=== PATIENT | female | born 1930 | race Caucasian/White ===

== ENCOUNTER 2018-04-15 17:49 | Inpatient (IN) ==
[2018-04-15] MEDS ORDERED: D5W 1000 ML IV 1,000 ML IV SCH (18:00)
[2018-04-15 19:00] LABS: BASOPHILS # (AUTO) 0.2 X10^3/uL (0.0-0.1); BASOPHILS % (AUTO) 1.2 % (0.2-1.0); EOSINOPHILS % (AUTO) 0.2 % (0.9-2.9); HEMATOCRIT 33.4 % (36.0-47.0); HEMOGLOBIN 10.9 g/dL (12.0-16.0); LYMPHOCYTES # (AUTO) 1.9 X10^3/uL (1.3-2.9); LYMPHOCYTES % (AUTO) 13.7 % (21.0-51.0); MEAN CORPUSCULAR HGB CONC 32.6 g/dL (33.0-35.0); MEAN CORPUSCULAR VOLUME 85.7 fL (80.0-100.0); MONOCYTES # (AUTO) 0.5 x10^3/uL (0.3-0.8); MONOCYTES % (AUTO) 3.2 % (0.0-13.0); NEUTROPHILS # (AUTO) 11.6 x10^3/uL (2.2-4.8); NEUTROPHILS % (AUTO) 81.7 % (42.0-75.0); PLATELET COUNT 259 X10^3/uL (150.0-450.0); RED CELL DISTRIBUTION WIDTH 17.9 % (11.6-16.5); WHITE BLOOD COUNT 14.2 X10^3/uL (3.6-10.0)
[2018-04-15 19:07] LABS: PLATELET MORPHOLOGY COMMENT NORMAL (NORMAL)
[2018-04-15 19:08] LABS: ALANINE AMINOTRANSFERASE 11 Units/L (12-78); ALBUMIN 2.9 g/dL (3.4-5.0); ALKALINE PHOSPHATASE 56 Units/L (46-116); ASPARTATE AMINO TRANSFERASE 12 Units/L (15-37); BLOOD UREA NITROGEN 20 mg/dL (7-18); CALCIUM 8.4 mg/dL (8.5-10.1); CARBON DIOXIDE 22.7 mmol/L (21-32); CHLORIDE 108 mmol/L (98-107); COR CA(FOR HYPOALB) 9.3 mg/dL (8.5-10.1); COR NA(FOR HYPERGLY) 144 mmol/L (136-145); CREATININE 0.84 mg/dL (0.55-1.02); SODIUM 142 mmol/L (136-145); TOTAL PROTEIN 7.6 g/dL (6.4-8.2); eGFR NON BLACK RACES > 60 (>60)
[2018-04-15] MEDS ORDERED: M.S. CONTIN 15 MG (EXTENDED RELEASE) PO PRN ×2 (20:13→21:11)
[2018-04-15] MEDS ORDERED: PERCOCET TAB 5/325 MG PO PRN ×2 (20:15→21:11)
[2018-04-15] MEDS ORDERED: XANAX PO PRN ×2 (20:15→21:11)
[2018-04-15 22:47] LABS: BILIRUBIN,URINE NEGATIVE (NEGATIVE); BLOOD/HEMOGLOBIN,URINE NEGATIVE (NEGATIVE); GLUCOSE, URINE 1+ (NEGATIVE); KETONES,URINE NEGATIVE (NEGATIVE); LEUKOCYTE ESTERASE ,URINE 1+ (NEGATIVE); NITRITES,URINE POSITIVE (NEGATIVE); PROTEIN,URINE 1+ (NEGATIVE); UROBILINOGEN,URINE NORMAL (NORMAL)
[2018-04-15 22:54] LABS: APPEARANCE,URINE CLOUDY (CLEAR); BACTERIA,URINE 4+ /HPF (NEGATIVE); COLOR,URINE YELLOW (YELLOW); RBC,URINE 0-2 /HPF (NONE SEEN); SQUAMOUS EPITHELIAL CELL,UR RARE /HPF (NEGATIVE)
--- NOTE | 2018-04-15 23:09 | RAD ---
AP chest Indication: Elevated white blood cell count with shortness of breath Comparison: None available Findings: Increased reticular opacities within the right lung base represents subsegmental atelectasi s versus developing right lower lobe infiltrate. Suspected small right-sided pleural effusion as well . Chronic interstitial lung changes and hyperexpansion lungs consistent with COPD. Heart size within normal limits. Moderate tortuosity and likely ectasia of the descending thoracic aorta. There is a resendez spected moderate-size hiatal hernia also noted. No acute osseous abnormality. Impression: 1.Increased reticular opacities within the right lung base represents subsegmental atelectasis versus developing infiltrate/pneumonia. 2. Suspected small right-sided pleural effusion. 3. Moderate COPD and chronic interstitial lung changes. 4. Suspected moderate size hiatal hernia. Reported By:
[2018-04-16] MEDS: D5W 1000 ML IV 1,000 ML IV SCH ×3 (03:05→17:47)
[2018-04-16 06:37] LABS: BASOPHILS # (AUTO) 0.1 X10^3/uL (0.0-0.1); BASOPHILS % (AUTO) 1.2 % (0.2-1.0); EOSINOPHILS # (AUTO) 0.1 x10^3/uL (0.0-0.2); EOSINOPHILS % (AUTO) 0.8 % (0.9-2.9); HEMATOCRIT 31.2 % (36.0-47.0); HEMOGLOBIN 10.4 g/dL (12.0-16.0); LYMPHOCYTES # (AUTO) 2.7 X10^3/uL (1.3-2.9); MEAN CORPUSCULAR HEMOGLOBIN 28.2 pg (27.0-34.0); MEAN CORPUSCULAR HGB CONC 33.4 g/dL (33.0-35.0); MEAN CORPUSCULAR VOLUME 84.3 fL (80.0-100.0); MEAN PLATELET VOLUME 9.1 fL (7.4-11.0); MONOCYTES # (AUTO) 0.5 x10^3/uL (0.3-0.8); MONOCYTES % (AUTO) 5.1 % (0.0-13.0); NEUTROPHILS # (AUTO) 7.1 x10^3/uL (2.2-4.8); NEUTROPHILS % (AUTO) 66.9 % (42.0-75.0); PLATELET COUNT 262 X10^3/uL (150.0-450.0); RED CELL DISTRIBUTION WIDTH 17.9 % (11.6-16.5); WHITE BLOOD COUNT 10.6 X10^3/uL (3.6-10.0)
[2018-04-16 06:51] LABS: ALANINE AMINOTRANSFERASE 20 Units/L (12-78); ALBUMIN 2.7 g/dL (3.4-5.0); ALKALINE PHOSPHATASE 50 Units/L (46-116); ASPARTATE AMINO TRANSFERASE 14 Units/L (15-37); BLOOD UREA NITROGEN 16 mg/dL (7-18); CALCIUM 8.2 mg/dL (8.5-10.1); CARBON DIOXIDE 24.9 mmol/L (21-32); CHLORIDE 103 mmol/L (98-107); COR CA(FOR HYPOALB) 9.2 mg/dL (8.5-10.1); CREATININE 0.63 mg/dL (0.55-1.02); SODIUM 138 mmol/L (136-145); eGFR NON BLACK RACES > 60 (>60)
[2018-04-16] MEDS: DUONEB 0.5 MG/3 MG NEB SCH ×4 (08:36→20:20)
[2018-04-16] MEDS: LEVAQUIN PREMIX IV 500 MG 500 MG/100 ML BAG IV SCH (08:44)
[2018-04-16] MEDS: FORTAZ or TAZICEF VIAL INJ 1 G in NS 100 ML IV + SPIKE MINIBAG* 100 ML IV SCH ×3 (08:44→21:04)
[2018-04-16] MEDS ORDERED: ROCEPHIN VIAL 1 GRAM 1 G in NS 100 ML IV + SPIKE MINIBAG* 100 ML IV SCH (09:00)
[2018-04-16] MEDS ORDERED: SALINE 3% 15 ML NEB TX ONE (09:23)
[2018-04-16] MEDS ORDERED: MULTIVITAMIN CA IRON MINERALS PO SCH (09:30)
[2018-04-16] MEDS ORDERED: [UNRECOGNIZED DRUG - OTHER] PO SCH (09:30)
--- NOTE | 2018-04-16 09:49 | DR.H&P ---
H&P - History & Physical for Day of: H&P Date: 04/15/18 - Chief Complaint Chief Complaint: GENERALIZED WEAKNESS, HYPERNATREMIA - History of Present Illness History of Present Illness: IS A 87 YEAR OLD PATIENT OF OURS WHO IS A RESIDENT OF [facility]. SHE PRESENTED TO THE HOSPITAL A DIRECT ADMISSION FOR HYPERNATREMIA AND GENERALIZED WEAKNESS. OUTPATIENT LABS THAT WERE OBTAINED ON 04/14/18 REVEALED SODIUM OF 152 AND CHLORIDE 116. WE ADMITTED PATIENT FOR FURTHER AND EVALUATION AND TREATMENT AND PLANNED TO START HER ON D5W AT 100ML/HR. ON ADMISSION, PATIENT WAS NOTED TO BE SHORT OF BREATH AND WITH A NON- PRODUCTIVE COUGH. WE OBTAINED FURTHER LABS AND A CHEST XRAY. ABNORMAL LAB VALUES INCLUDE THE FOLLOWING: WBC 14.2, HGB 10.9, HCT 33.4, CHLORIDE 108, BUN 20 , GLUCOSE 182, CALCIUM 8.4, AST 12, ALT 11, ALBUMIN 2.9. URINALYSIS REVEALED: WBC 10-20, RBC 0-2, LEUKOCYTES 1+, BACTERIA 4+. CHEST XRAY REVEALED INCREASED RETICULAR OPACITIES WITHIN THE RIGHT LUNG BASE RESPRESENTING SUBSEGMENTAL ATELECTASIS VERSUS DEVELOPING INFILTRATE/PNEUMONIA. SUSPECTED SMALL RIGHT SIDED PLEURAL EFFUSION. MODERATE COPD AND CHRONIC INTERSTITIAL LUNG CHANGES. SUSPECTED MODERATE SIZE HIATAL HERNIA. HER VITALS ON ADMISSION WERE 98.2-107-20- 98%-174/78. WE STARTED PATIENT ON THE PNEUMONIA PROTOCOL WITH FORTAZ AND LEVAQUIN IV WELL RESPIRATORY TREATMENTS. WE RESUMED HOME MEDICATIONS. OTHERWISE, WE PLANNED TO FOLLOW UP WITH AM LABS AND CHEST XRAY AND CONTINUE TO MONITOR PATIENT. - Past Medical History Past Medical History: Alzheimers, Arthritis, Coronary Artery Disease, CVA, Dementia, Depression, Dyslipidemia, GERD, Hypertension, Hypothyroidism, Renal Disease Additional Medical History: PARKINSONS, CONSTIPATION, CHRONIC BACK PAIN, SCHIZOPHRENIA - Past Surgical History Surgical History: Hysterectomy, Ortho Surgery Additional Surgical History: HIP REPLACEMENT - Family History Family Medical History: Cancer, Coronary Artery Disease - Social History Does patient currently use any type of tobacco product: No Have you used tobacco products in the last 12 months: No Type of Tobacco Use: None Does any household member use tobacco: No Alcohol Use: None Drug Use: None - Medications Home Medications: alprazolam 1 tab PO HS 04/15/18 [History Confirmed 04/15/18] amino acids-protein hydrolys [Pro-Stat Profile] 1 packet PO BID 04/15/18 [ History Confirmed 04/15/18] ascorbic acid (vitamin C) [Vitamin C] 1 tab PO BID 04/15/18 [History Confirmed 04/15/18] docusate sodium 10 ml PO BID 04/15/18 [History Confirmed 04/15/18] food supplemt, lactose-reduced [Ensure Enlive] 8 oz PO Q6HR 04/15/18 [History Confirmed 04/15/18] levothyroxine 1 tab PO DAILY 04/15/18 [History Confirmed 04/15/18] megestrol 40 mg PO BID 04/15/18 [History Confirmed 04/15/18] morphine 1 tab PO BID 04/15/18 [History Confirmed 04/15/18] fjvarphzxrpb-Fl-znbh-minerals [Multiple Vitamin, Womens] 1 tab PO DAILY [History Confirmed 04/15/18] olanzapine 1 tab PO DAILY 04/15/18 [History Confirmed 04/15/18] oxycodone-acetaminophen 1 tab PO Q6HR PRN 04/15/18 [History Confirmed 04/15/18] polyethylene glycol 3350 1 dose PO HS 04/15/18 [History Confirmed 04/15/18] polyvinyl alcohol [Artificial Tears (polyvin alc)] 1 drp OPHTHALMIC (EYE) TID [History Confirmed 04/15/18] potassium chloride 7.5 ml PO DAILY 04/15/18 [History Confirmed 04/15/18] - Review of Systems Constitutional: Weakness Eyes: No Symptoms Reported ENT: No Symptoms Reported Respiratory: Cough, Shortness of Breath. denies: Hemoptysis, Pleuritic Pain, Sputum, Wheezing Cardiovascular: No Symptoms Reported Gastrointestinal: No Symptoms Reported Genitourinary: Incontinence Musculoskeletal: No Symptoms Reported Skin: No Symptoms Reported Neurological: Weakness - Physical Exam Vital Signs: Temperature 97.0 F Pulse Rate [Left Brachial] 66 Pulse Rate 77 Respiratory Rate 16 Blood Pressure [Right Thigh] 125/47 Blood Pressure [Left Arm] 155/67 O2 Sat by Pulse Oximetry 97 Oriented: Not Oriented Eyes: Normal Ear: Normal Nose: Normal Throat: Normal Respiratory: Diminished Throughout Cardiovascular: Normal. negative: S3, S4, Murmur : Normal Auscultation: Bowel Sounds: Normal Palpation: Normal Tenderness: Suprapubic, Mild. negative: Rebound, Guarding, Rigidity Skin: Normal Musculoskeletal: Normal Psychiatric: Normal Mood Description: Calm Affect: Normal - Assessment/Plan (1) Hypernatremia Status: Acute Plan: ADMIT, D5W @ 100ML/HR, CONTINUE TO MOITOR (2) Pneumonia Qualifiers: Pneumonia type: due to unspecified organism Laterality: right Lung location: lower lobe of lung Qualified Code(s): J18.1 - Lobar pneumonia, unspecified organism Status: Acute Plan: PNEUMONIA PROTOCOL, FORTAZ, LEVAQUIN, SUPPLEMENTAL OXYGEN, RESPIRATORY TREATMENTS, CONTINUE TO MONITOR (3) Urinary tract infection Qualifiers: Urinary tract infection type: acute cystitis Hematuria presence: without hematuria Qualified Code(s): N30.00 - Acute cystitis without hematuria Status: Acute Plan: FORTAZ IV, LEVAQUIN IV, CONTINUE TO MONITOR - Allergies Allergies/Adverse Reactions: Allergies Allergy/AdvReac Type Severity Reaction Status Date / Time fentanyl Allergy Verified 04/15/18 20:08
[2018-04-16] MEDS ORDERED: DIFLUCAN 100 MG IV (MIX by PHARMACY)* 100 MG/50 ML BAG IV SCH (10:00)
[2018-04-16] MEDS: VITAMIN C PO SCH ×2 (10:04→20:32)
[2018-04-16] MEDS: POTASSIUM CHLORIDE LIQ 20 MEQ UDC PO SCH (10:04)
[2018-04-16] MEDS: MIRALAX POWDER (1 DOSE 17 G) PO SCH (10:04)
[2018-04-16] MEDS: COLACE SYRUP 100 MG UDC PO SCH ×2 (10:04→20:31)
[2018-04-16] MEDS: MEGACE PO SCH ×2 (10:05→20:32)
[2018-04-16] MEDS: SYNTHROID 88 mcg TAB PO SCH (10:05)
[2018-04-16] MEDS: ARTIFICIAL TEARS DROPS OP SCH ×3 (10:06→21:03)
[2018-04-16] MEDS: ROBITUSSIN DM PO SCH ×5 (10:07→20:40)
[2018-04-16] MEDS: DIFLUCAN 200 MG IV PREMIX* 200 MG/100 ML BAG IV SCH (11:22)
[2018-04-16] MEDS ORDERED: [UNRECOGNIZED DRUG - OTHER] PO SCH (15:00)
[2018-04-16] MEDS ORDERED: MIRALAX POWDER (255 GRAMS BTL) PO SCH (21:00)
--- NOTE | 2018-04-16 21:41 | PCM.PROG ---
Progress Note - Progress Note for Day of Date: 04/16/18 - Subjective Subjective: WAS ADMITTED FROM THE COR[place] FOR HYPERNATREMIA, PNEUMONIA, AND A URINARY TRACT INFECTION. TODAY, SHE IS LYING IN BED WITH EYES CLOSE ON MORNING ROUNDS. SHE CONTINUES WITH A NON-PRODUCTIVE COUGH. ON EXAMINATION, HEART IS REGULAR IN RATE AND RHYTHM. BILATERAL LUNGS ARE NOTED WITH DIMINISHED LUNG SOUNDS THROUGHOUT. ABDOMEN IS ROUND, SOFT, AND TENDER TO SUPRAPUBIC AREA ON PALPATION. NORMAL BOWEL SOUNDS ARE NOTED IN ALL QUADRANTS. HER VITALS THIS MORNING ARE 96.9-76-20-98%-155/67. LABS WERE OBTAINED. ABNORMAL LAB VALUES INCLUDE THE FOLLOWING: WBC 10.6, HGB 10.4, HCT 31.2, CALCIUM 8.2, AST 14, ALBUMIN 2.7. TODAY, WE WILL CONTINUE WITH IV FLUIDS, RESPIRATORY TREATMENTS, AND CURRENT PLAN OF CARE. OTHERWISE, WE WILL FOLLOW UP WITH AM LABS AND CONTINUE TO MONITOR PATIENT. - Past Medical Family Social History Past Med/Fam/Surg Hx: No changes since H&P Allergies: Allergies fentanyl Allergy (Verified 04/15/18 20:08) - Review of Systems ROS: No change since H&P - Vital Signs and I&O's Vital Signs: Temperature 97.9 F Pulse Rate [Left Brachial] 95 Pulse Rate 97 Respiratory Rate 22 Blood Pressure [Right Arm] 126/67 Blood Pressure [Right Thigh] 125/47 Blood Pressure [Left Arm] 109/53 O2 Sat by Pulse Oximetry 96 Intake and Output: Intake & Output 04/14/18 04/15/18 04/16/18 04/17/18 11:59 11:59 11:59 11:59 Intake Total 1265 / 1265 120 / 120 Balance 1265 / 1265 120 / 120 - Physical Exam Oriented: Not Oriented Eyes: Normal Ear: Normal Nose: Normal Throat: Normal Respiratory: Right, Left, Generalized, Diminished Cardiovascular: Normal. negative: S3, S4, Murmur : Normal Auscultation: Bowel Sounds: Normal Palpation: Normal Tenderness: Suprapubic, Mild. negative: Rebound, Guarding, Rigidity Skin: Normal Musculoskeletal: Normal Psychiatric: Normal Mood Description: Calm Affect: Normal Speech Pattern: Clear, Appropriate - Laboratory and Diagnostics Result Diagrams: 04/16/18 05:49 04/16/18 05:49 Labs: Laboratory WBC 10.6 X10^3/uL (3.6-10.0) H 04/16/18 05:49 RBC 3.70 X10^6/uL (3.5-5.4) 04/16/18 05:49 Hgb 10.4 g/dL (12.0-16.0) L 04/16/18 05:49 Hct 31.2 % (36.0-47.0) L 04/16/18 05:49 MCV 84.3 fL (80.0-100.0) 04/16/18 05:49 MCH 28.2 pg (27.0-34.0) 04/16/18 05:49 MCHC 33.4 g/dL (33.0-35.0) 04/16/18 05:49 RDW 17.9 % (11.6-16.5) H 04/16/18 05:49 Plt Count 262 X10^3/uL (150.0-450.0) 04/16/18 05:49 Plt Count Comment Adequate (ADEQUATE) 04/15/18 18:38 MPV 9.1 fL (7.4-11.0) 04/16/18 05:49 Neut % (Auto) 66.9 % (42.0-75.0) 04/16/18 05:49 Lymph % (Auto) 26.0 % (21.0-51.0) 04/16/18 05:49 [place] % (Auto) 5.1 % (0.0-13.0) 04/16/18 05:49 Eos % (Auto) 0.8 % (0.9-2.9) L 04/16/18 05:49 Baso % (Auto) 1.2 % (0.2-1.0) H 04/16/18 05:49 Neut # (Auto) 7.1 x10^3/uL (2.2-4.8) H 04/16/18 05:49 Lymph # (Auto) 2.7 X10^3/uL (1.3-2.9) 04/16/18 05:49 [place] # (Auto) 0.5 x10^3/uL (0.3-0.8) 04/16/18 05:49 Eos # (Auto) 0.1 x10^3/uL (0.0-0.2) 04/16/18 05:49 Baso # (Auto) 0.1 X10^3/uL (0.0-0.1) 04/16/18 05:49 Absolute Nucleated RBC 0.1 /100WBC 04/16/18 05:49 Plt Clumps, EDTA Few 04/15/18 18:38 Plt Morphology Comment Normal (NORMAL) 04/15/18 18:38 RBC Morphology Normal (NORMAL) 04/15/18 18:38 Sodium 138 mmol/L (136-145) 04/16/18 05:49 Corrected Sodium TNP 04/16/18 05:49 Potassium 3.7 mmol/L (3.5-5.1) 04/16/18 05:49 Chloride 103 mmol/L (98-107) 04/16/18 05:49 Carbon Dioxide 24.9 mmol/L (21-32) 04/16/18 05:49 BUN 16 mg/dL (7-18) 04/16/18 05:49 Creatinine 0.63 mg/dL (0.55-1.02) 04/16/18 05:49 Est GFR (MDRD) Af Amer > 60 (>60) 04/16/18 05:49 Est GFR (MDRD) Non-Af > 60 (>60) 04/16/18 05:49 Glucose 95 mg/dL (65-99) 04/16/18 05:49 Calcium 8.2 mg/dL (8.5-10.1) L 04/16/18 05:49 Corrected Calcium 9.2 mg/dL (8.5-10.1) 04/16/18 05:49 Total Bilirubin 0.50 mg/dL (0.2-1.0) 04/16/18 05:49 AST 14 Units/L (15-37) L 04/16/18 05:49 ALT 20 Units/L (12-78) 04/16/18 05:49 Alkaline Phosphatase 50 Units/L (46-116) 04/16/18 05:49 Total Protein 7.0 g/dL (6.4-8.2) 04/16/18 05:49 Albumin 2.7 g/dL (3.4-5.0) L 04/16/18 05:49 Globulin 4.3 g/dL (2.5-4.5) 04/16/18 05:49 Albumin/Globulin Ratio 0.6 Ratio (1.1-2.1) L 04/16/18 05:49 Specimen Type Catherized urine 04/15/18 22:30 Urine Color Yellow (YELLOW) 04/15/18 22:30 Urine Appearance Cloudy (CLEAR) 04/15/18 22:30 Urine pH 7.0 (5.0 - 8.0) 04/15/18 22:30 Ur Specific [place] 1.010 (1.000-1.030) 04/15/18 22:30 Urine Protein 1+ (NEGATIVE) 04/15/18 22:30 Urine Glucose (UA) 1+ (NEGATIVE) 04/15/18 22:30 Urine Ketones Negative (NEGATIVE) 04/15/18 22:30 Urine Occult Blood Negative (NEGATIVE) 04/15/18 22:30 Urine Nitrite Positive (NEGATIVE) 04/15/18 22:30 Urine Bilirubin Negative (NEGATIVE) 04/15/18 22:30 Urine Urobilinogen Normal (NORMAL) 04/15/18 22:30 Ur Leukocyte Esterase 1+ (NEGATIVE) 04/15/18 22:30 Urine RBC 0-2 /HPF (NONE SEEN) 04/15/18 22:30 Urine WBC 10-20 /HPF (NONE SEEN) 04/15/18 22:30 Ur Squamous Epith Cells Rare /HPF (NEGATIVE) 04/15/18 22:30 Urine Bacteria 4+ /HPF (NEGATIVE) 04/15/18 22:30 Ur Culture Indicated? Yes/culture set up 04/15/18 22:30 - Plan (1) Hypernatremia Status: Acute Plan: ADMIT, D5W @ 100ML/HR, CONTINUE TO MOITOR (2) Pneumonia Status: Acute Qualifiers: Pneumonia type: due to unspecified organism Laterality: right Lung location: lower lobe of lung Qualified Code(s): J18.1 - Lobar pneumonia, unspecified organism Plan: PNEUMONIA PROTOCOL, FORTAZ, LEVAQUIN, SUPPLEMENTAL OXYGEN, RESPIRATORY TREATMENTS, CONTINUE TO MONITOR (3) Urinary tract infection Status: Acute Qualifiers: Urinary tract infection type: acute cystitis Hematuria presence: without hematuria Qualified Code(s): N30.00 - Acute cystitis without hematuria Plan: FORTAZ IV, LEVAQUIN IV, CONTINUE TO MONITOR (4) Dementia Status: Acute Qualifiers: Dementia type: Alzheimer's disease Alzheimer's disease onset: other onset Dementia behavioral disturbance: without behavioral disturbance Qualified Code(s): G30.8 - Other Alzheimer's disease; F02.80 - Dementia in other diseases classified elsewhere without behavioral disturbance Plan: CONTINUE HOME MEDS
[2018-04-17] MEDS: D5W 1000 ML IV 1,000 ML IV SCH ×2 (04:21→13:36)
[2018-04-17] MEDS: FORTAZ or TAZICEF VIAL INJ 1 G in NS 100 ML IV + SPIKE MINIBAG* 100 ML IV SCH ×3 (05:29→21:33)
[2018-04-17] MEDS: ARTIFICIAL TEARS DROPS OP SCH ×3 (05:29→22:00)
--- NOTE | 2018-04-17 06:17 | RAD ---
HISTORY: Shortness of breath, elevated white blood cell count. Study: Single-view chest Comparison: 04/15/2018. Findings: Trachea is midline. Heart size normal. There is aortic uncoiling. There is hyperinflation of the lung s with improved aeration in the right lung base. Chronic interstitial changes likely indicate COPD. A very small right-sided pleural effusion is again suspected. No pneumothorax is seen. Osseous structu res are intact. IMPRESSION: COPD with improved aeration in the right lung base. Small right pleural effusion is suspected. Reported By:
[2018-04-17 06:23] LABS: ALANINE AMINOTRANSFERASE 7 Units/L (12-78); ALBUMIN 2.2 g/dL (3.4-5.0); ALKALINE PHOSPHATASE 44 Units/L (46-116); ASPARTATE AMINO TRANSFERASE 12 Units/L (15-37); BLOOD UREA NITROGEN 16 mg/dL (7-18); CALCIUM 8.9 mg/dL (8.5-10.1); CARBON DIOXIDE 26.1 mmol/L (21-32); CHLORIDE 104 mmol/L (98-107); COR CA(FOR HYPOALB) 10.3 mg/dL (8.5-10.1); CREATININE 0.78 mg/dL (0.55-1.02); SODIUM 138 mmol/L (136-145); eGFR NON BLACK RACES > 60 (>60)
[2018-04-17 06:29] LABS: BASOPHILS % (AUTO) 0.5 % (0.2-1.0); EOSINOPHILS % (AUTO) 0.2 % (0.9-2.9); HEMATOCRIT 26.6 % (36.0-47.0); HEMOGLOBIN 8.9 g/dL (12.0-16.0); LYMPHOCYTES % (AUTO) 19.8 % (21.0-51.0); MEAN CORPUSCULAR HEMOGLOBIN 28.3 pg (27.0-34.0); MEAN CORPUSCULAR HGB CONC 33.6 g/dL (33.0-35.0); MEAN CORPUSCULAR VOLUME 84.3 fL (80.0-100.0); MEAN PLATELET VOLUME 9.2 fL (7.4-11.0); MONOCYTES # (AUTO) 0.5 x10^3/uL (0.3-0.8); MONOCYTES % (AUTO) 5.2 % (0.0-13.0); NEUTROPHILS # (AUTO) 7.4 x10^3/uL (2.2-4.8); NEUTROPHILS % (AUTO) 74.3 % (42.0-75.0); PLATELET COUNT 215 X10^3/uL (150.0-450.0); RED BLOOD COUNT 3.15 X10^6/uL (3.5-5.4); RED CELL DISTRIBUTION WIDTH 18.2 % (11.6-16.5)
[2018-04-17 07:59] VITALS: BMI 13.1
[2018-04-17] MEDS: LEVAQUIN PREMIX IV 500 MG 500 MG/100 ML BAG IV SCH (08:37)
[2018-04-17] MEDS: DIFLUCAN 200 MG IV PREMIX* 200 MG/100 ML BAG IV SCH (08:38)
[2018-04-17] MEDS: COLACE SYRUP 100 MG UDC PO SCH ×2 (08:39→21:31)
[2018-04-17] MEDS: MIRALAX POWDER (1 DOSE 17 G) PO SCH (08:39)
[2018-04-17] MEDS: MEGACE PO SCH (08:39)
[2018-04-17] MEDS: TAB-A-VITE PO SCH (08:39)
[2018-04-17] MEDS: ROBITUSSIN DM PO SCH ×3 (08:39→21:30)
[2018-04-17] MEDS: POTASSIUM CHLORIDE LIQ 20 MEQ UDC PO SCH (08:39)
[2018-04-17] MEDS: VITAMIN C PO SCH ×2 (08:39→21:29)
[2018-04-17] MEDS: SYNTHROID 88 mcg TAB PO SCH (08:39)
[2018-04-17] MEDS: DUONEB 0.5 MG/3 MG NEB SCH ×4 (08:49→21:49)
[2018-04-17] MEDS ORDERED: DULCOLAX SUPPOSITORY 10 MG RECTAL ONE (20:31)
[2018-04-18] MEDS: MEGACE PO SCH ×2 (00:36→09:54)
[2018-04-18] MEDS: D5W 1000 ML IV 1,000 ML IV SCH (03:07)
[2018-04-18 05:16] LABS: BASOPHILS % (AUTO) 0.4 % (0.2-1.0); EOSINOPHILS % (AUTO) 0.7 % (0.9-2.9); HEMATOCRIT 29.2 % (36.0-47.0); HEMOGLOBIN 9.7 g/dL (12.0-16.0); LYMPHOCYTES % (AUTO) 27.5 % (21.0-51.0); MEAN CORPUSCULAR HEMOGLOBIN 28.4 pg (27.0-34.0); MEAN CORPUSCULAR HGB CONC 33.4 g/dL (33.0-35.0); MEAN PLATELET VOLUME 8.9 fL (7.4-11.0); MONOCYTES # (AUTO) 0.5 x10^3/uL (0.3-0.8); MONOCYTES % (AUTO) 7.4 % (0.0-13.0); NEUTROPHILS # (AUTO) 4.5 x10^3/uL (2.2-4.8); PLATELET COUNT 246 X10^3/uL (150.0-450.0); RED BLOOD COUNT 3.44 X10^6/uL (3.5-5.4); RED CELL DISTRIBUTION WIDTH 17.9 % (11.6-16.5); WHITE BLOOD COUNT 7.1 X10^3/uL (3.6-10.0)
[2018-04-18 05:28] LABS: ALANINE AMINOTRANSFERASE 9 Units/L (12-78); ALBUMIN 2.3 g/dL (3.4-5.0); ALKALINE PHOSPHATASE 45 Units/L (46-116); ASPARTATE AMINO TRANSFERASE 17 Units/L (15-37); BLOOD UREA NITROGEN 12 mg/dL (7-18); CALCIUM 9.3 mg/dL (8.5-10.1); CARBON DIOXIDE 25.9 mmol/L (21-32); CHLORIDE 106 mmol/L (98-107); COR CA(FOR HYPOALB) 10.7 mg/dL (8.5-10.1); CREATININE 0.64 mg/dL (0.55-1.02); SODIUM 139 mmol/L (136-145); TOTAL PROTEIN 6.6 g/dL (6.4-8.2); eGFR NON BLACK RACES > 60 (>60)
[2018-04-18] MEDS: FORTAZ or TAZICEF VIAL INJ 1 G in NS 100 ML IV + SPIKE MINIBAG* 100 ML IV SCH (05:38)
[2018-04-18] MEDS: ARTIFICIAL TEARS DROPS OP SCH (05:38)
--- NOTE | 2018-04-18 07:05 | RAD ---
HISTORY: Shortness of breath, elevated WBCs Study: Single-view chest Comparison: 04/17/2018. Findings: Trachea is midline. Heart size is normal. There is hyperinflation of the lungs without infiltrate. Stephen th costophrenic angle regions are somewhat obscured by patient's arms. No acute osseous abnormalities are seen. IMPRESSION: Hyperinflation, indicating COPD. No consolidation is seen. Reported By:
[2018-04-18] MEDS: DUONEB 0.5 MG/3 MG NEB SCH ×2 (08:28→12:12)
[2018-04-18] MEDS: POTASSIUM CHLORIDE LIQ 20 MEQ UDC PO SCH (09:53)
[2018-04-18] MEDS: MIRALAX POWDER (1 DOSE 17 G) PO SCH (09:53)
[2018-04-18] MEDS: DIFLUCAN 200 MG IV PREMIX* 200 MG/100 ML BAG IV SCH (09:53)
[2018-04-18] MEDS: LEVAQUIN PREMIX IV 500 MG 500 MG/100 ML BAG IV SCH (09:53)
[2018-04-18] MEDS: ROBITUSSIN DM PO SCH ×2 (09:54→09:55)
[2018-04-18] MEDS: SYNTHROID 88 mcg TAB PO SCH (09:54)
[2018-04-18] MEDS: TAB-A-VITE PO SCH (09:54)
[2018-04-18] MEDS: VITAMIN C PO SCH (09:54)
[2018-04-18] MEDS: COLACE SYRUP 100 MG UDC PO SCH (09:54)
[2018-04-18 12:18] VITALS: BP 118/57
--- NOTE | 2018-04-18 22:11 | PCM.PROG ---
Progress Note - Progress Note for Day of Date: 04/17/18 - Subjective Subjective: WAS ADMITTED FROM THE LONG-TERM FOR HYPERNATREMIA, PNEUMONIA, AND A URINARY TRACT INFECTION. TODAY, SHE IS LYING IN BED WITH EYES CLOSE ON MORNING ROUNDS. SHE CONTINUES WITH A NON-PRODUCTIVE COUGH. ON EXAMINATION, HEART IS REGULAR IN RATE AND RHYTHM. BILATERAL LUNGS ARE NOTED WITH DIMINISHED LUNG SOUNDS THROUGHOUT. ABDOMEN IS ROUND, SOFT, AND TENDER TO SUPRAPUBIC AREA ON PALPATION. NORMAL BOWEL SOUNDS ARE NOTED IN ALL QUADRANTS. HER VITALS THIS MORNING ARE 98.4-78-18-100%-120/57, LABS WERE OBTAINED. ABNORMAL LAB VALUES INCLUDE THE FOLLOWING: RBC 3.15, HGB 8.9, HCT 26.6, AST 12, ALT 7, ALK PHOS 44, TOTAL PROTEIN 6.0, ALBUMIN 2.2. A CHEST XRAY WAS OBTAINED TODAY AND REVEALED COPD WITH IMPROVED AERATION IN THE RIGHT LUNG BASE. SMALL RIGHT PLEURAL EFFUSION IS SUSPECTED. TODAY, WE WILL CONTINUE WITH IV FLUIDS, RESPIRATORY TREATMENTS, AND CURRENT PLAN OF CARE. OTHERWISE, WE WILL FOLLOW UP WITH AM LABS AND CONTINUE TO MONITOR PATIENT. - Past Medical Family Social History Past Med/Fam/Surg Hx: No changes since H&P Allergies: Allergies fentanyl Allergy (Verified 04/15/18 20:08) - Review of Systems ROS: No change since H&P - Vital Signs and I&O's Vital Signs: Temperature 97.9 F Pulse Rate [Left Brachial] 92 Pulse Rate 84 Respiratory Rate 18 Blood Pressure [Right Arm] 111/54 Blood Pressure [Right Thigh] 120/57 Blood Pressure [Left Arm] 118/57 O2 Sat by Pulse Oximetry 96 Intake and Output: Intake & Output 04/16/18 04/17/18 04/18/18 04/19/18 11:59 11:59 11:59 11:59 Intake Total 1265 / 1265 1535 / 1535 760 / 760 Balance 1265 / 1265 1535 / 1535 760 / 760 - Physical Exam Oriented: Not Oriented Eyes: Normal Ear: Normal Nose: Normal Throat: Normal Respiratory: Right, Left, Generalized, Diminished Cardiovascular: Normal. negative: S3, S4, Murmur : Normal Auscultation: Bowel Sounds: Normal Palpation: Normal Tenderness: Suprapubic, Mild. negative: Rebound, Guarding, Rigidity Skin: Normal Musculoskeletal: Normal Psychiatric: Normal Mood Description: Calm Affect: Normal Speech Pattern: Clear, Appropriate - Laboratory and Diagnostics Result Diagrams: 04/18/18 04:29 04/18/18 04:29 Labs: 04/16/18 08:42 Blood Blood Culture - Preliminary 04/16/18 08:30 Blood Blood Culture - Preliminary 04/15/18 22:30 Urine,Clean Catch Urine Culture - Final Escherichia Coli Laboratory WBC 7.1 X10^3/uL (3.6-10.0) 04/18/18 04:29 RBC 3.44 X10^6/uL (3.5-5.4) L 04/18/18 04:29 Hgb 9.7 g/dL (12.0-16.0) L 04/18/18 04:29 Hct 29.2 % (36.0-47.0) L 04/18/18 04:29 MCV 85.0 fL (80.0-100.0) 04/18/18 04:29 MCH 28.4 pg (27.0-34.0) 04/18/18 04:29 MCHC 33.4 g/dL (33.0-35.0) 04/18/18 04:29 RDW 17.9 % (11.6-16.5) H 04/18/18 04:29 Plt Count 246 X10^3/uL (150.0-450.0) 04/18/18 04:29 Plt Count Comment Adequate (ADEQUATE) 04/15/18 18:38 MPV 8.9 fL (7.4-11.0) 04/18/18 04:29 Neut % (Auto) 64.0 % (42.0-75.0) 04/18/18 04:29 Lymph % (Auto) 27.5 % (21.0-51.0) 04/18/18 04:29 [place] % (Auto) 7.4 % (0.0-13.0) 04/18/18 04:29 Eos % (Auto) 0.7 % (0.9-2.9) L 04/18/18 04:29 Baso % (Auto) 0.4 % (0.2-1.0) 04/18/18 04:29 Neut # (Auto) 4.5 x10^3/uL (2.2-4.8) 04/18/18 04:29 Lymph # (Auto) 2.0 X10^3/uL (1.3-2.9) 04/18/18 04:29 [place] # (Auto) 0.5 x10^3/uL (0.3-0.8) 04/18/18 04:29 Eos # (Auto) 0.0 x10^3/uL (0.0-0.2) 04/18/18 04:29 Baso # (Auto) 0.0 X10^3/uL (0.0-0.1) 04/18/18 04:29 Absolute Nucleated RBC 0.0 /100WBC 04/18/18 04:29 Plt Clumps, EDTA Few 04/15/18 18:38 Plt Morphology Comment Normal (NORMAL) 04/15/18 18:38 RBC Morphology Normal (NORMAL) 04/15/18 18:38 Sodium 139 mmol/L (136-145) 04/18/18 04:29 Corrected Sodium TNP 04/18/18 04:29 Potassium 3.6 mmol/L (3.5-5.1) 04/18/18 04:29 Chloride 106 mmol/L (98-107) 04/18/18 04:29 Carbon Dioxide 25.9 mmol/L (21-32) 04/18/18 04:29 BUN 12 mg/dL (7-18) 04/18/18 04:29 Creatinine 0.64 mg/dL (0.55-1.02) 04/18/18 04:29 Est GFR (MDRD) Af Amer > 60 (>60) 04/18/18 04:29 Est GFR (MDRD) Non-Af > 60 (>60) 04/18/18 04:29 Glucose 95 mg/dL (65-99) 04/18/18 04:29 Calcium 9.3 mg/dL (8.5-10.1) 04/18/18 04:29 Corrected Calcium 10.7 mg/dL (8.5-10.1) H 04/18/18 04:29 Total Bilirubin 0.20 mg/dL (0.2-1.0) 04/18/18 04:29 AST 17 Units/L (15-37) 04/18/18 04:29 ALT 9 Units/L (12-78) L 04/18/18 04:29 Alkaline Phosphatase 45 Units/L (46-116) L 04/18/18 04:29 Total Protein 6.6 g/dL (6.4-8.2) 04/18/18 04:29 Albumin 2.3 g/dL (3.4-5.0) L 04/18/18 04:29 Globulin 4.3 g/dL (2.5-4.5) 04/18/18 04:29 Albumin/Globulin Ratio 0.5 Ratio (1.1-2.1) L 04/18/18 04:29 Specimen Type Catherized urine 04/15/18 22:30 Urine Color Yellow (YELLOW) 04/15/18 22: Urine Appearance Cloudy (CLEAR) 04/15/18 22: Urine pH 7.0 (5.0 - 8.0) 04/15/18 22:30 Ur Specific [place] 1.010 (1.000-1.030) 04/15/18 22:30 Urine Protein 1+ (NEGATIVE) 04/15/18 22: Urine Glucose (UA) 1+ (NEGATIVE) 04/15/18 22:30 Urine Ketones Negative (NEGATIVE) 04/15/18 22:30 Urine Occult Blood Negative (NEGATIVE) 04/15/18 22:30 Urine Nitrite Positive (NEGATIVE) 04/15/18 22: Urine Bilirubin Negative (NEGATIVE) 04/15/18 22:30 Urine Urobilinogen Normal (NORMAL) 04/15/18 22:30 Ur Leukocyte Esterase 1+ (NEGATIVE) 04/15/18 22:30 Urine RBC 0-2 /HPF (NONE SEEN) 04/15/18 22:30 Urine WBC 10-20 /HPF (NONE SEEN) 04/15/18 22:30 Ur Squamous Epith Cells Rare /HPF (NEGATIVE) 04/15/18 22:30 Urine Bacteria 4+ /HPF (NEGATIVE) 04/15/18 22:30 Ur Culture Indicated? Yes/culture set up 04/15/18 22:30 - Plan (1) Hypernatremia Status: Acute Plan: ADMIT, D5W @ 100ML/HR, CONTINUE TO MOITOR (2) Pneumonia Status: Acute Qualifiers: Pneumonia type: due to unspecified organism Laterality: right Lung location: lower lobe of lung Qualified Code(s): J18.1 - Lobar pneumonia, unspecified organism Plan: PNEUMONIA PROTOCOL, FORTAZ, LEVAQUIN, SUPPLEMENTAL OXYGEN, RESPIRATORY TREATMENTS, CONTINUE TO MONITOR (3) Urinary tract infection Status: Acute Qualifiers: Urinary tract infection type: acute cystitis Hematuria presence: without hematuria Qualified Code(s): N30.00 - Acute cystitis without hematuria Plan: FORTAZ IV, LEVAQUIN IV, CONTINUE TO MONITOR (4) Dementia Status: Acute Qualifiers: Dementia type: Alzheimer's disease Alzheimer's disease onset: other onset Dementia behavioral disturbance: without behavioral disturbance Qualified Code(s): G30.8 - Other Alzheimer's disease; F02.80 - Dementia in other diseases classified elsewhere without behavioral disturbance Plan: CONTINUE HOME MEDS
--- NOTE | 2018-05-07 01:49 | DR.CARTERD ---
- Discharge Summary for: Discharge Summary for Date of:: 04/18/18 - Admission Date Date of Admission: 04/15/18 - Admission Diagnoses Admission Diagnosis: (1) Pneumonia (2) Hypernatremia (3) Urinary tract infection - Discharge Date Discharge Date: 04/18/18 - Discharge Diagnoses Discharge Diagnosis: (1) Pneumonia (2) E. Coli Urinary tract infection (3) Hypernatremia (4) Dementia - Hospital Course Hospital Course: DAY ONE, IS A 87 YEAR OLD PATIENT OF OURS WHO IS A RESIDENT OF [facility]. SHE PRESENTED TO THE HOSPITAL A DIRECT ADMISSION FOR HYPERNATREMIA AND GENERALIZED WEAKNESS. OUTPATIENT LABS THAT WERE OBTAINED ON 04/14/18 REVEALED SODIUM OF 152 AND CHLORIDE 116. WE ADMITTED PATIENT FOR FURTHER AND EVALUATION AND TREATMENT AND STARTED HER ON D5W AT 100ML/HR. ON ADMISSION, PATIENT WAS NOTED TO BE SHORT OF BREATH AND WITH A NON-PRODUCTIVE COUGH. WE OBTAINED FURTHER LABS AND A CHEST XRAY. ABNORMAL LAB VALUES INCLUDED THE FOLLOWING: WBC 14.2, HGB 10.9, HCT 33.4, CHLORIDE 108, BUN 20, GLUCOSE 182, CALCIUM 8.4, AST 12, ALT 11, ALBUMIN 2.9. URINALYSIS REVEALED: WBC 10-20, RBC 0- 2, LEUKOCYTES 1+, BACTERIA 4+. CHEST XRAY REVEALED INCREASED RETICULAR OPACITIES WITHIN THE RIGHT LUNG BASE RESPRESENTING SUBSEGMENTAL ATELECTASIS VERSUS DEVELOPING INFILTRATE/PNEUMONIA; SUSPECTED SMALL RIGHT SIDED PLEURAL EFFUSION; MODERATE COPD AND CHRONIC INTERSTITIAL LUNG CHANGES; SUSPECTED MODERATE SIZE HIATAL HERNIA. HER VITALS ON ADMISSION WERE 98.2-107-20-98%-174/ 78. WE STARTED PATIENT ON THE PNEUMONIA PROTOCOL WITH FORTAZ AND LEVAQUIN IV WELL RESPIRATORY TREATMENTS. WE RESUMED HOME MEDICATIONS AND CONTINUED TO MONITOR PATIENT. DAY TWO, PATIENT CONTINUED TREATMENT FOR HYPERNATREMIA, PNEUMONIA, AND A URINARY TRACT INFECTION. SHE WAS LYING IN BED WITH EYES CLOSE ON MORNING ROUNDS. SHE CONTINUED WITH A NON-PRODUCTIVE COUGH. ON EXAMINATION, HEART WAS REGULAR IN RATE AND RHYTHM. BILATERAL LUNGS WERE NOTED WITH DIMINISHED LUNG SOUNDS THROUGHOUT. ABDOMEN WAS ROUND, SOFT, AND TENDER TO SUPRAPUBIC AREA ON PALPATION. NORMAL BOWEL SOUNDS WERE NOTED IN ALL QUADRANTS. HER VITALS WERE 96.9 -76-20-98%-155/67. LABS WERE OBTAINED. ABNORMAL LAB VALUES INCLUDED THE FOLLOWING: WBC 10.6, HGB 10.4, HCT 31.2, CALCIUM 8.2, AST 14, ALBUMIN 2.7. WE CONTINUED WITH IV FLUIDS, RESPIRATORY TREATMENTS, AND AGGRESSIVE PULMONARY TOILETING. WE CONTINUED TO MONITOR PATIENT. DAY THREE, PATIENT WAS LYING IN BED WITH EYES CLOSED ON MORNING ROUNDS. SHE CONTINUED WITH A NON-PRODUCTIVE COUGH. ON EXAMINATION, HEART WAS REGULAR IN RATE AND RHYTHM. BILATERAL LUNGS WERE NOTED WITH DIMINISHED LUNG SOUNDS THROUGHOUT. ABDOMEN WAS ROUND, SOFT, AND TENDER TO SUPRAPUBIC AREA ON PALPATION. NORMAL BOWEL SOUNDS WERE NOTED IN ALL QUADRANTS. HER VITALS WERE 98.4 -78-18-100%-120/57, LABS WERE OBTAINED. ABNORMAL LAB VALUES INCLUDED THE FOLLOWING: RBC 3.15, HGB 8.9, HCT 26.6, AST 12, ALT 7, ALK PHOS 44, TOTAL PROTEIN 6.0, ALBUMIN 2.2. A CHEST XRAY WAS OBTAINED AND REVEALED COPD WITH IMPROVED AERATION IN THE RIGHT LUNG BASE; SMALL RIGHT PLEURAL EFFUSION WAS SUSPECTED. WE CONTINUED WITH IV FLUIDS AND RESPIRATORY TREATMENTS. DAY FOUR, PATIENT WAS DOING BETTER. NO ACUTE DISTRESS WAS NOTED. FINAL URINE CULTURE REPORTED E. COLI. FINAL BLOOD CULTURES WERE NEGATIVE. VITAL SIGNS STABLE. LABS WNL. WE PLANNED FOR DISCHARGE WITH CONTINUED IV ERTAPENEM AND NEB TREATMENTS. INSTRUCTIONS FOR MEDICATIONS AND FOLLOW UP WERE DISCUSSED WITH PATIENT AND FAMILY, BOTH VOICED UNDERSTANDING. PATIENT DISCHARGED TO [facility] IN STABLE CONDITION WITH STAFF. Labs: Microbiology 04/15/18 22:30 Urine,Clean Catch Urine Culture - Final Escherichia Coli - Discharge Medications Discharge Medications: Home Medication List alprazolam 1 tab PO HS 04/15/18 [History] amino acids-protein hydrolys [Pro-Stat Profile] 1 packet PO BID 04/15/18 [ History] ascorbic acid (vitamin C) [Vitamin C] 1 tab PO BID 04/15/18 [History] docusate sodium 10 ml PO BID 04/15/18 [History] food supplemt, lactose-reduced [Ensure Enlive] 8 oz PO Q6HR 04/15/18 [History] levothyroxine 1 tab PO DAILY 04/15/18 [History] megestrol 40 mg PO BID 04/15/18 [History] morphine 1 tab PO BID 04/15/18 [History] nzxhoyrdghwa-Bz-kpqd-minerals [Multiple Vitamin, Womens] 1 tab PO DAILY [History] olanzapine 1 tab PO DAILY 04/15/18 [History] oxycodone-acetaminophen 1 tab PO Q6HR PRN 04/15/18 [History] polyethylene glycol 3350 1 dose PO HS 04/15/18 [History] polyvinyl alcohol [Artificial Tears (polyvin alc)] 1 drp OPHTHALMIC (EYE) TID [History] potassium chloride 7.5 ml PO DAILY 04/15/18 [History] ertapenem 1 g IV DAILY #10 ea 04/18/18 [Rx] ipratropium-albuterol 1 ea NEB TID #50 ml 04/18/18 [Rx] Prescriptions: ertapenem Greyson Lewis ipratropium-albuterol Greyson Lewis - Discharge Disposition Discharge Disposition: We will follow up with patient in one week at correction.
== END 2018-04-18 13:55 | DRG 640 ==
LOC: MED/SURG 18:36
PROVIDERS: ADMIT Internal Medicine; ATTEND Internal Medicine
DX: B96.29 Other Escherichia coli [E. coli] as the cause of diseases classified elsewhere; E78.2 Mixed hyperlipidemia; F02.80 Dementia in other diseases classified elsewhere, unspecified severity, without behavioral disturbance, psychotic disturbance, mood disturbance, and anxiety; K21.9 Gastro-esophageal reflux disease without esophagitis; N30.00 Acute cystitis without hematuria; I10 Essential (primary) hypertension; R53.1 Weakness; Z66 Do not resuscitate; G30.8 Other Alzheimer's disease; J44.9 Chronic obstructive pulmonary disease, unspecified; E87.0 Hyperosmolality and hypernatremia; R06.02 Shortness of breath; J18.8 Other pneumonia, unspecified organism; I25.10 Atherosclerotic heart disease of native coronary artery without angina pectoris
CPT/HCPCS: 36415; 71010; 71045; 80053; 81001; 85025; 87040; 87086; 87088; 87186; 94640; 94760; A4222; S0179; J0713; J1450; J1956; J7050; J7060; J7620